=== PATIENT | female | born 1985 | race Two or more races ===

== ENCOUNTER 2016-05-12 08:19 | Inpatient (IN) | payer BC, OTHER ==
[2016-05-12 08:34] VITALS: BMI 48.2
[2016-05-12] MEDS ORDERED: ONDANSETRON 4 MG/2 ML VIAL ONE (08:57)
[2016-05-12] MEDS ORDERED: HYOSCYAMINE SULFATE 0.125 MG *ODT PO ONE (09:08)
[2016-05-12] MEDS ORDERED: SODIUM CHLORIDE 1,000 ML IV STA ×3 (09:08→12:50)
[2016-05-12] MEDS ORDERED: ONDANSETRON 4 MG/2 ML VIAL IVPUSH ONE (09:08)
--- NOTE | 2016-05-12 09:08 | PDOC ---
History of Present Illness - General Chief Complaint: Pain Stated Complaint: VOMITING, ABD PAIN, LIGHTHEADED Time Seen by Provider: 05/12/16 08:51 History Source: Patient Exam Limitations: No Limitations - History of Present Illness Initial Comments: 05/12/16 09:01 This is a 31 -year-old female with no significant past medical history presents emergency department with nausea, vomiting, diarrhea. Patient states she was in her usual state of health until this morning at 6 am She noted nausea and then vomited three times - non bloody, non bilious She also noted diarrhea, 4 episodes She reports mild epigstric discomfort She has had no fevers or chills No recent travel (+) ill contacts (pt works at [employer]), patients and staff are ill with the same symptoms No dietary changes GENERAL/CONSTITUTIONAL: No: fever, chills, weakness, loss of appetite. HEAD, EYES, EARS, NOSE AND THROAT: No: change in vision, ear pain, discharge, sore throat, throat swelling. CARDIOVASCULAR: No: chest pain, lightheadedness, palpitations, syncope RESPIRATORY: No: cough, shortness of breath, wheezing, hemoptysis, stridor. GASTROINTESTINAL: Yes: nausea, vomiting, diarrhea, abdominal pain No: rectal bleeding, constipation. GENITOURINARY: No: dysuria, hematuria, frequency, urgency, flank pain. MUSCULOSKELETAL: No: back pain, neck pain, joint pain, muscle swelling or pain SKIN : No: lesions, pallor, rash or easy bruising. NEUROLOGIC: No: headache, vertigo, paresthesias, weakness ENDOCRINE: No: unexplained weight gain or loss HEMATOLOGIC/LYMPHATIC: No: anemia, easy bleeding, swelling nodes. GENERAL: The patient is in no acute distress. HEAD: Normal with no signs of trauma. EYES: PERRLA, EOMI, sclera anicteric, conjunctiva clear. ENT: Ears normal, nares patent, oropharynx clear without exudates. Dry mucous membranes. NECK: Normal range of motion, supple without lymphadenopathy, JVD, or masses. LUNGS: Breath sounds equal, clear to auscultation bilaterally. No wheezes, and no crackles. HEART:Regular rate and rhythm, normal S1 and S2 without murmur, rub or gallop. ABDOMEN: Soft, epigastric tenderness to palpation, No involuntary guarding or rebound. EXTREMITIES: Normal range of motion, no edema. No clubbing or cyanosis. No erythema, or tenderness. NEUROLOGICAL: Cranial nerves II through XII grossly intact. Normal speech. No focal neurological deficits. MUSCULOSKELETAL: Back non-tender to palpation, no CVA tenderness SKIN: Warm, Dry, normal turgor, no rashes or lesions noted. 05/12/16 09:10 05/16/16 02:34 Past History - Past Medical History Allergies/Adverse Reactions: Allergies Allergy/AdvReac Type Severity Reaction Status Date / Time No Known Allergies Allergy Verified 05/12/16 08:31 Home Medications: Ambulatory Orders Ferrous Sulfate 325 mg PO DAILY 05/12/16 Other medical history: morbid obesity - Immunization History Immunization Up to Date: No - Psycho/Social/Smoking Cessation Hx Anxiety: No Suicidal Ideation: No Smoking History: Never smoked Have you smoked in the past 12 months: No Information on smoking cessation initiated: No Hx Alcohol Use: No Drug/Substance Use Hx: No Substance Use Type: None *Physical Exam - Vital Signs Last Vital Signs Temp Pulse Resp BP Pulse Ox 98.0 F 85 18 145/97 100 05/12/16 08:31 05/12/16 08:31 05/12/16 08:31 05/12/16 08:31 05/12/16 08:31 ED Treatment Course - LABORATORY CBC & Chemistry Diagram: 05/13/16 06:00 05/13/16 06:00 Medical Decision Making - Medical Decision Making 05/12/16 09:10 Will do basic labs Will do ZOfran Will give IVF 05/12/16 10:12 Laboratory Tests 05/12/16 05/12/16 09:10 09:10 WBC 6.3 Hgb 11.1 Hct 35.1 Plt Count 212 Neutrophils % 86.2 H Lymphocytes % 7.2 L Sodium 138 Potassium 4.4 Chloride 104 Carbon Dioxide 28 BUN 11 Creatinine 0.7 Random Glucose 88 Total Bilirubin 0.6 AST 237 H ALT 377 H Alkaline Phosphatase 184 H Total Amylase 76 Lipase 116 Given Zofran Given IVF Will do US RUQ 05/12/16 13:59 RUQ US demonstrates gall stones, anterior wall thickening, ? chronic cholecystitis Case reviewed with Dr. ailyn Will will trend LFTs Case reviewed with TAMRA sotomayor Will admit Clinical Impression: LFT abnormalities *DC/Admit/Observation/Transfer Diagnosis at time of Disposition: Transaminitis - Discharge Dispostion Disposition: HOME Condition at time of disposition: Improved Admit: Yes
[2016-05-12 09:26] LABS: BASOPHIL 0.3 % (0-2.0); EOSINOPHIL 0.4 % (0-4.5); MCH 27.1 pg (25.7-33.7); MCHC 31.7 g/dl (32.0-36.0); MEAN CELL VOLUME 85.4 fl (80-96); MEAN PLT VOLUME 9.3 fl (7.5-11.1); NEUTROPHILS 86.2 % (42.8-82.8); PLATELET COUNT 212 K/MM3 (134-434); RDW 16.4 % (11.6-15.6); WHITE BLOOD COUNT 6.3 K/mm3 (4.0-10.0)
[2016-05-12 09:48] LABS: ALBUMIN 3.5 g/dl (3.4-5.0); AMYLASE 76 U/L (25-115); ANION GAP 6 (8-16); CALCIUM 8.8 mg/dL (8.5-10.1); CO2 28 mmol/L (21-32); CREATININE 0.7 mg/dL (0.55-1.02); GLUCOSE,RANDOM 88 mg/dL (74-106); SGPT/ALT 377 U/L (12-78)
[2016-05-12 09:50] LABS: ALK PHOS 184 U/L (45-117); BILIRUBIN,TOTAL 0.6 mg/dL (0.2-1.0); TOT PROT 7.4 g/dl (6.4-8.2)
[2016-05-12 09:52] LABS: SGOT/AST 237 U/L (15-37)
[2016-05-12 13:45] LABS: URINE APPEARANCE CLEAR; URINE BILIRUBIN NEGATIVE (NEGATIVE); URINE BLOOD NEGATIVE (NEGATIVE); URINE COLOR LTYELLOW; URINE GLUCOSE (UA) NEGATIVE (NEGATIVE); URINE KETONE NEGATIVE (NEGATIVE); URINE LEUK ESTERASE NEGATIVE (NEGATIVE); URINE NITRITE NEGATIVE (NEGATIVE); URINE PROTEIN NEGATIVE (NEGATIVE); URINE UROBILINOGEN NEGATIVE E.U./dl (0.2-1.0)
[2016-05-12 15:16] LABS: ALBUMIN 3.5 g/dl (3.4-5.0); ALK PHOS 172 U/L (45-117); ANION GAP 6 (8-16); BILIRUBIN,TOTAL 0.5 mg/dL (0.2-1.0); CALCIUM 8.9 mg/dL (8.5-10.1); CO2 28 mmol/L (21-32); CREATININE 0.7 mg/dL (0.55-1.02); GLUCOSE,RANDOM 89 mg/dL (74-106); SGOT/AST 158 U/L (15-37); SGPT/ALT 339 U/L (12-78); TOT PROT 7.8 g/dl (6.4-8.2)
[2016-05-12] MEDS ORDERED: ONDANSETRON 4 MG/2 ML VIAL IVPB PRN (15:49)
[2016-05-12] MEDS ORDERED: DEXTROSE 5%-NORMAL SALINE 1,000 ML IV SCH (16:00)
--- NOTE | 2016-05-12 16:00 | HP ---
CHIEF COMPLAINT: vomiting and diarrhea since 6 am this morning. PCP: No PCP HISTORY OF PRESENT ILLNESS: 31 y/o morbidly obese female presents to ER for vomiting, diarrhea, and abdominal pain since 6 am this morning. She states the abdominal pain was in the epigastric region and was not aggravated by food. Her vomitus was nonbloody and nonbilious. Diarrhea was also non-bloody. She did not eat this morning nor did she eat dinner last night. She denies fevers and chills. Has sick contacts at work ([employer] [facility] [employer]) who have had N/V, diarrhea. She currently feels better and denies abdominal pain at the moment. She states before her she lost 25 pounds and did not gain weight during her . 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 She delivered 2 months ago via vaginal delivery. She is not breast feeding currently. She states she has never been aware of having gallstones in the past. ER course was notable for: (1) RUQ U/S (2) (3) Recent Travel: [place] June 2015; [place] December 2015 PAST MEDICAL HISTORY: denies PAST SURGICAL HISTORY: denies Social History: Smoking: Never Alcohol: Socially prior to Drugs: Never Family History: Twin sister: Passed; had scleroderma Allergies No Known Allergies Allergy (Verified 05/12/16 08:31) HOME MEDICATIONS: Medication Instructions Recorded NK [No Known Home Medication] 05/12/16 REVIEW OF SYSTEMS CONSTITUTIONAL: Weight loss Absent: fever, chills, diaphoresis, generalized weakness, malaise, loss of appetite, HEENT: Absent: rhinorrhea, nasal congestion, throat pain, throat swelling, difficulty swallowing, mouth swelling, ear pain, eye pain, visual changes CARDIOVASCULAR: Absent: chest pain, syncope, palpitations, irregular heart rate, lightheadedness , peripheral edema RESPIRATORY: Absent: cough, shortness of breath, dyspnea with exertion, orthopnea, wheezing, stridor, hemoptysis GASTROINTESTINAL: Nausea, vomiting, diarrhea, abd pain Absent: abdominal distension, constipation, melena, hematochezia GENITOURINARY: Absent: dysuria, frequency, urgency, hesitancy, hematuria, flank pain, genital pain MUSCULOSKELETAL: Absent: myalgia, arthralgia, joint swelling, back pain, neck pain SKIN: Absent: rash, itching, pallor HEMATOLOGIC/IMMUNOLOGIC: Absent: easy bleeding, easy bruising, lymphadenopathy, frequent infections ENDOCRINE: Absent: unexplained weight gain, unexplained weight loss, heat intolerance, cold intolerance NEUROLOGIC: Absent: headache, focal weakness or paresthesias, dizziness, unsteady gait, seizure, mental status changes, bladder or bowel incontinence PSYCHIATRIC: Absent: anxiety, depression, suicidal or homicidal ideation, hallucinations. PHYSICAL EXAMINATION GENERAL: Awake, alert, and fully oriented, in no acute distress. HEAD: Normal with no signs of trauma. EYES: extraocular movements intact, sclera anicteric, conjunctiva clear. EARS, NOSE, THROAT: Moist mucous membranes. NECK: Normal range of motion, supple LUNGS: Diminished breath sounds, clear to auscultation bilaterally. No wheezes, and no crackles. No accessory muscle use. HEART: Regular rate and rhythm, normal S1 and S2 without murmur, rub or gallop. ABDOMEN: Soft, MILD EPIGASTRIC TENDERNESS, not distended, normoactive bowel sounds, no guarding, no rebound, no masses. No hepatomegaly or splenomegaly. LOWER EXTREMITIES: 2+ pulses, warm, well-perfused. No peripheral edema. NEUROLOGICAL: Normal speech. Gait not observed PSYCHIATRIC: Cooperative. Good eye contact. Appropriate mood and affect. SKIN: Warm, dry, normal turgor, no rashes or lesions noted. Laboratory Results - last 24 hr 05/12/16 14:45 Sodium 138 Potassium 4.1 Chloride 104 Carbon Dioxide 28 Anion Gap 6 L BUN 10 Creatinine 0.7 Creat Clearance w eGFR > 60 Random Glucose 89 Calcium 8.9 Total Bilirubin 0.5 AST 158 H D ALT 339 H Alkaline Phosphatase 172 H Total Protein 7.8 Albumin 3.5 ASSESSMENT/PLAN: 31 y/o morbidly obese F presented with abd pain, vomiting, and diarrhea since 6 am this morning. Currently admitted for transaminitis and cholelithiasis. -Transaminitis -Trend LFTs -RUQ US shows hepatomegaly -f/u hepatitis panel -f/u iron studies -f/u SAHARA, Anti-smooth muscle Ab -Abdominal pain secondary to Cholecystitis most likely -secondary to chronic cholelithiasis most likely -f/u LFTs -RUQ US shows gallstones, some possible wall thickening -Dr. Will - surgery on board -May not need surgical intervention on this admission and may be able to do cholecystectomy as outpatient -No Abx currently as pt does not look acutely infected -Viral Gastroenteritis -May be cause of N/V and diarrhea -Has had sick contact with similar symptoms. -Nausea -Zofran 4 mg Q6H IV PRN for nausea -Morbid obesity -f/u TSH -FEN -D5NS@ 75 ml/hr -NPO currently -Dispo: -Monitor on floors for now, may be able to continue management as outpatient if she continues to improve. -Does not have PCP, will assign Dr. Valdes upon discharge. Problem List - Problem (1) Transaminitis Code(s): R74.0 - NONSPEC ELEV OF LEVELS OF TRANSAMNS & LACTIC ACID DEHYDRGNSE (2) Cholelithiasis Code(s): K80.20 - CALCULUS OF GALLBLADDER W/O CHOLECYSTITIS W/O OBSTRUCTION (3) Viral gastroenteritis Code(s): A08.4 - VIRAL INTESTINAL INFECTION, UNSPECIFIED (4) Hepatomegaly Code(s): R16.0 - HEPATOMEGALY, NOT ELSEWHERE CLASSIFIED (5) Morbid obesity Code(s): E66.01 - MORBID (SEVERE) OBESITY DUE TO EXCESS CALORIES Visit type - Emergency Visit Emergency Visit: Yes ED Registration Date: 05/12/16 Care time: The patient presented to the Emergency Department on the above date and was hospitalized for further evaluation of their emergent condition. - New Patient This patient is new to me today: Yes Date on this admission: 05/12/16 - Critical Care Critical Care patient: No
--- NOTE | 2016-05-12 16:24 | PN ---
Teaching Attending Note Name of Resident: Fléix Toussaint ATTENDING PHYSICIAN STATEMENT I saw and evaluated the patient. I reviewed the resident's note and discussed the case with the resident. I agree with the resident's findings and plan as documented. SUBJECTIVE:c/o nausea with vomiting and diarrhea since this morning. started shortly after breakfast with vomiting x4 food and bilious fluid and 2 episodes of loose BM. she denies any relation to food. upon arrival to ER started developing epigastric tenderness. 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 hx significant for spontaneous vaginal 2 months ago (not currently ) only complicated by frequent UTI. Hx also signficant for 25lb weight loss during the past 9 months. also travel to [place] at the beginning of her . denies any medication use (OTC, prescribed or herbal) denies ETOH and IVDA. NO tylenol use. family hx significant for twin sister with scleroderma OBJECTIVE: Last Vital Signs Temp Pulse Resp BP Pulse Ox 98.0 F 85 18 145/97 100 05/12/16 08:31 05/12/16 08:31 05/12/16 08:31 05/12/16 08:31 05/12/16 08:31 General NAD CV S1 S2 distant heart sounds Lungs CTA B/L no wheezing/rales/rhonchi Abdomen soft NT/ND no rebound or guarding no licea sign. morbid obese Extremities no pedal edema no rashes ASSESSMENT AND PLAN: 31yo F with PMH morbid obesity presented to the ER and was admitted for further evaluation of their emergent condition 1. Transaminitis- no baseline. could possibly be cholestasis of vs fatty liver vs chronic liver disease. will check TSH, iron studies, hepatitis panel. IVF. trend labs. will likely need further workup including liver biopsy as outpatient 2. Viral gastroenteritis- IVF, nausea and pain control 3. Chronic cholecystitis- no signs of acute infection. no pain, leukocytosis or fever. no indication for abx at this time. will likely require removal of gallbladder. can possibly be done as outpatient. surgery consulted 4. Morbid obesity- with weight loss over the past 9 months. this can be related to but may be significant and may require further workup. also encourage healthy eating habits and excercise. consider bariatric surgery. 5. DVT ppx- lovenox (moderate risk considering recent and obesity)
[2016-05-12] MEDS ORDERED: HYDROmorphone HCL CARPU-JECT 1 MG/1 ML DISP.SYRIN IM PRN (22:25)
--- NOTE | 2016-05-12 22:29 | HOSP ---
Subjective - Review of Symptoms General: No: Chills, Malaise, Appetite Gastrointestinal: Yes: Abdominal Pain, Diarrhea. No: Nausea, Vomiting, Hematochezia Physical Examination Vital Signs: Vital Signs Temperature 99 F 05/12/16 20:22 Pulse Rate 78 05/12/16 20:22 Respiratory Rate 18 05/12/16 20:22 Blood Pressure 126/67 05/12/16 20:22 O2 Sat by Pulse Oximetry (%) 100 05/12/16 20:22 Labs: CBC, BMP 05/12/16 14:45 Hospitalist Encounter Assessment: Was informed by the nurse that patient complained of abdominal pain. Went to see the patient, she was comfortably sleeping. Patient mentioned she had 5 episodes of bowel movements today, non bloody, watery diarrhoea, non fowl smelling. Abdominal pain has resolved at this time as per the patient. On examination: Abdomen: Soft, non tender, non distended, bowel sounds heard, hepatosplenomegaly couldn't be appreciated. Dilaudid 0.5mg IM PRN ordered. Case discussed with Dr. Otoole. Visit type - Emergency Visit Emergency Visit: Yes ED Registration Date: 05/12/16 Care time: The patient presented to the Emergency Department on the above date and was hospitalized for further evaluation of their emergent condition. - New Patient This patient is new to me today: Yes Date on this admission: 05/12/16 - Critical Care Critical Care patient: No
[2016-05-13 05:37] VITALS: TEMP 98.3
[2016-05-13 08:03] LABS: BASOPHIL 0.3 % (0-2.0); EOSINOPHIL 0.1 % (0-4.5); MCHC 31.8 g/dl (32.0-36.0); MEAN CELL VOLUME 85.1 fl (80-96); MEAN PLT VOLUME 9.6 fl (7.5-11.1); NEUTROPHILS 68.2 % (42.8-82.8); PLATELET COUNT 190 K/MM3 (134-434); RDW 16.3 % (11.6-15.6); WHITE BLOOD COUNT 3.8 K/mm3 (4.0-10.0)
[2016-05-13 10:46] VITALS: BP 112/70; PULSE 65
--- NOTE | 2016-05-13 11:53 | CONS ---
DATE OF CONSULTATION: 05/13/2016 ADMITTING DIAGNOSIS: Chronic cholecystitis, chronic cholelithiasis, rule out acute cholecystitis. BRIEF HISTORY: This is a 31-year-old morbidly obese female who presented to the emergency room with a several-hour history of nausea, vomiting, and severe abdominal pain. The pain started after eating food. Patient states that she has had previous bouts in the past and does have a mild fatty food intolerance. She underwent an ultrasound of the gallbladder. The gallbladder ultrasound demonstrated findings consistent with gallstones, mildly thickened gallbladder wall without pericholecystic fluid. These findings were consistent with chronic cholecystitis. At the time of admission, her transaminases and alkaline phosphatase were markedly elevated. Bilirubin was normal. Amylase was normal, as well. PAST MEDICAL HISTORY: No coronary artery disease, hypertension, or diabetes. PAST SURGICAL HISTORY: None. MEDICATIONS: Refer to chart. ALLERGIES: None. SOCIAL HISTORY: Patient is does not smoke, nor drink. PHYSICAL EXAMINATION: HEENT: There is no icterus. Abdomen: Is morbidly obese. It is soft, nontender, nondistended at this time. IMPRESSION/PLAN: Suspect biliary colic, rule out choledocholithiasis. This is a 31-year-old female with a known history of having gallstones and chronic cholecystitis. She presented with an acute problem yesterday through the emergency room. I suspect she was passing a stone. However, a common duct stone at this time cannot be entirely ruled out given the fact that her transaminases and alkaline phosphatase were markedly elevated. I would recommend repeating the LFTs at this point, and we should follow them. If the LFTs decrease, patient can be scheduled for an elective cholecystectomy during this admission or can be discharged. If the patients LFTs remain elevated, I would have GI evaluate her and rule out for a common duct stone. At this point, I would not feed the patient until her LFTs are starting to come down to ensure that she does not have the common duct stone. I will be available to see this patient on an as-needed basis. Thank you for allowing me to participate in the care of your patient. DOROTEO ERAZO M.D. [id number] cc: Ofe Khan MD [facility]
[2016-05-13 12:43] LABS: ANION GAP 8 (8-16); CO2 24 mmol/L (21-32); SGPT/ALT 212 U/L (12-78)
[2016-05-13 12:50] LABS: ALBUMIN 2.9 g/dl (3.4-5.0); BILIRUBIN,TOTAL 0.4 mg/dL (0.2-1.0); CALCIUM 8.7 mg/dL (8.5-10.1); CREATININE 0.7 mg/dL (0.55-1.02); GLUCOSE,RANDOM 85 mg/dL (74-106); SGOT/AST 68 U/L (15-37); TOT PROT 6.2 g/dl (6.4-8.2)
--- NOTE | 2016-05-13 13:39 | DS ---
Physical Exam: SUBJECTIVE: Patient seen and examined. states nausea and vomiting has resolved. last BM was last night and remained loose. ate breakfast and tolerated well. no abdominal pain. denies CP, SOB,fever, chills OBJECTIVE: Vital Signs Period Temp Pulse Resp BP Sys/Guy Pulse Ox Last 24 Hr 98.3 F-99.1 F 65-84 18-18 101-126/57-70 91-100 PHYSICAL EXAM GENERAL: The patient is awake, alert, and fully oriented, in no acute distress. HEAD: Normal with no signs of trauma. EYES: PERRL, extraocular movements intact, sclera anicteric, conjunctiva clear. ENT: Ears normal, nares patent, oropharynx clear without exudates, moist mucous membranes. NECK: Trachea midline, full range of motion, supple. LUNGS: Breath sounds equal, clear to auscultation bilaterally, no wheezes, no crackles, no accessory muscle use. HEART: Regular rate and rhythm, S1, S2 without murmur, rub or gallop. ABDOMEN: Soft, nontender, nondistended, normoactive bowel sounds, no guarding, no rebound, no hepatosplenomegaly, no masses. morbid obesity EXTREMITIES: 2+ pulses, warm, well-perfused, no edema. NEUROLOGICAL: Cranial nerves II through XII grossly intact. Normal speech, gait not observed. PSYCH: Normal mood, normal affect. SKIN: Warm, dry, normal turgor, no rashes or lesions noted. LABS Laboratory Results - last 24 hr 05/12/16 05/13/16 05/13/16 14:45 06:00 06:00 WBC 3.8 L D RBC 3.67 Hgb 9.9 L D Hct 31.3 L MCV 85.1 MCHC 31.8 L RDW 16.3 H Plt Count 190 MPV 9.6 Neutrophils % 68.2 D Lymphocytes % 22.4 D Monocytes % 9.0 Eosinophils % 0.1 Basophils % 0.3 Sodium 138 139 Potassium 4.1 3.6 Chloride 104 107 Carbon Dioxide 28 24 Anion Gap 6 L 8 BUN 10 9 Creatinine 0.7 0.7 Creat Clearance w eGFR > 60 > 60 Random Glucose 89 85 Calcium 8.9 8.7 Total Bilirubin 0.5 0.4 AST 158 H D 68 H D ALT 339 H 212 H D Alkaline Phosphatase 172 H Total Protein 7.8 6.2 L D Albumin 3.5 2.9 L HOSPITAL COURSE: Date of Admission:05/12/16 Date of Discharge: 05/13/16 Admitting diagnosis: Acute Transaminitis, Acute viral gastroenteritis pre hospital course 31 y/o morbidly obese female presents to ER for vomiting, diarrhea, and abdominal pain since 6 am this morning. She states the abdominal pain was in the epigastric region and was not aggravated by food. Her vomitus was nonbloody and nonbilious. Diarrhea was also non-bloody. She did not eat this morning nor did she eat dinner last night. She denies fevers and chills. Has sick contacts at work ([employer] living [employer]) who have had N/V, diarrhea. She currently feels better and denies abdominal pain at the moment. She states before her she lost 25 pounds and did not gain weight during her . 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 She delivered 2 months ago via vaginal delivery. She is not breast feeding currently. She states she has never been aware of having gallstones in the past Subsequent hospital course Admitted to medicine. started on IVF, NPO, pain and nausea control. TSH, iron studies and hepatitis panel was sent. U/s of gallbladder showed chronic cholecystitis with multiple stones. surgery consulted. transaminitis trended down. symptoms resolved. diet advanced and tolerated. pt agreed to f/u with surgery next week for cholecystectomy. informed to avoid fried, fatty foods. d/ c home Minutes to complete discharge: 40 Discharge Summary Reason For Visit: TRANSAMINITIS Current Active Problems Cholelithiasis (Acute) Hepatomegaly (Acute) Morbid obesity (Acute) Transaminitis (Acute) Viral gastroenteritis (Acute) Condition: Improved - Instructions Diet, Activity, Other Instructions: You had several gallstones and will need to have your gallbladder removed, contact information for the surgeon you saw today have been provided. Call for appointment this sunday You need to see a primary care doctor, call for appointment next week. You will need to follow your liver enzymes and other test that were sent on this admission. Eat a low fat diet, avoid fried and fatty foods. Return to the ER if you develop Right sided abdominal pain or fever (temp >101) . Referrals: Parminder Will MD [Staff Physician] - bAel Balderas MD [Staff Physician] - Disposition: HOME - Home Medications Comprehensive Discharge Medication List: Ambulatory Orders Ferrous Sulfate 325 mg PO DAILY 05/12/16 This patient is new to me today: No Emergency Visit: Yes ED Registration Date: 05/12/16 Care time: The patient presented to the Emergency Department on the above date and was hospitalized for further evaluation of their emergent condition. Critical Care patient: No - Discharge Referral Referred to [facility] Yes Physician Referral: Abel Balderas MD (Int Med) (resident: Félix Toussaint)
[2016-05-13 18:09] LABS: ALK PHOS 131 U/L (45-117); FERRITIN 72.079 ng/ml (6.9-282.5); THYROID STIMULATING HORMONE 0.41 uIU/ml (0.358-3.74)
[2016-05-14 06:37] LABS: SERUM IRON 43 ug/dL (27-159); TOTAL IRON BINDING CAPACITY 269 ug/dL (250-450); UIBC 226 ug/dL (131-425)
[2016-05-16 00:07] LABS: SMOOTH MUSCLE AB 11 Units (0-19)
[2016-05-17 00:06] LABS: HEP B SURFACE AB Non Reactive (.)
== END 2016-05-13 14:21 | disposition home or self-care (01) ==
LOC: JER 08:19 → JERBED 14:31 → J7W 18:20
PROVIDERS: ADMIT Internal Medicine; ATTEND Internal Medicine
DX: K80.10 Calculus of gallbladder with chronic cholecystitis without obstruction (principal); A08.4 Viral intestinal infection, unspecified; R16.0 Hepatomegaly, not elsewhere classified; R74.0 Nonspecific elevation of levels of transaminase and lactic acid dehydrogenase [LDH]; E66.01 Morbid (severe) obesity due to excess calories; Z68.42 Body mass index [BMI] 45.0-49.9, adult; Z71.3 Dietary counseling and surveillance
CPT/HCPCS: 36415; 76705-TC; 80053; 81003; 82150; 82728; 83516; 83540; 83550; 83690; 84443; 85025; 86038; 86704; 86706; 86708; 86803; 87086; 87340; 99283-25

== ENCOUNTER 2017-01-06 09:14 | Emergency (ER) | payer OTHER ==
[2017-01-06 09:19] VITALS: BMI 48.6
--- NOTE | 2017-01-06 09:24 | PDOC ---
History of Present Illness - General History Source: Patient Exam Limitations: No Limitations - History of Present Illness Initial Comments: 01/06/17 09:44 The patient is a 31 year old female, with significant past medical history of gallstones, who presents to the emergency room complaining of RUQ pain starting at 6:00am this morning. The patient states that these symptoms are similar to when she had gallstones in April of this year. She was admitted here and was told to have a cholecystectomy, however, the referred doctor did not take her insurance. Since April, 8 months ago, she has experienced intermittent RUQ pain. However, today the pain is constant, sharp, and 8/10 in severity. Her last meal was ribs and fried plantains at dinner last night. Denies fever, chills, nausea, vomiting. Denies diarrhea. Denies recent travel and recent illness. <Louise Mart - Last Filed: 01/06/17 10:41> - General History Source: Patient Exam Limitations: No Limitations <Marge Granados - Last Filed: 01/06/17 11:03> - General Chief Complaint: Pain Stated Complaint: PAIN/ GALLSTONES Time Seen by Provider: 01/06/17 09:23 Past History <Louise Mart - Last Filed: 01/06/17 10:41> - Past Medical History Anemia: Yes - Immunization History Immunization Up to Date: No - Psycho/Social/Smoking Cessation Hx Anxiety: No Suicidal Ideation: No Smoking History: Never smoked Have you smoked in the past 12 months: No Hx Alcohol Use: No Drug/Substance Use Hx: No Substance Use Type: None Hx Substance Use Treatment: No <Marge Granados - Last Filed: 01/06/17 11:03> - Past Medical History Allergies/Adverse Reactions: Allergies Allergy/AdvReac Type Severity Reaction Status Date / Time No Known Allergies Allergy Verified 01/06/17 09:19 Home Medications: Ambulatory Orders Ferrous Sulfate 325 mg PO DAILY 05/12/16 Review of Systems - Review of Systems Able to Perform ROS?: Yes Comments:: 01/06/17 09:45 GENERAL/CONSTITUTIONAL: No: fever, chills, weakness, loss of appetite. HEAD, EYES, EARS, NOSE AND THROAT: No: change in vision, ear pain, discharge, sore throat, throat swelling. CARDIOVASCULAR: No: chest pain, lightheadedness, palpitations, syncope RESPIRATORY: No: cough, shortness of breath, wheezing, hemoptysis, stridor. GASTROINTESTINAL: +RUQ pain. No: nausea, vomiting, diarrhea, rectal bleeding, constipation. GENITOURINARY: No: dysuria, hematuria, frequency, urgency, flank pain. MUSCULOSKELETAL: No: back pain, neck pain, joint pain, muscle swelling or pain SKIN: No: lesions, pallor, rash or easy bruising. NEUROLOGIC: No: headache, vertigo, paresthesias, weakness ENDOCRINE: No: unexplained weight gain or loss HEMATOLOGIC/LYMPHATIC: No: anemia, easy bleeding, swelling nodes <Louise Mart - Last Filed: 01/06/17 10:41> *Physical Exam - Vital Signs Last Vital Signs Temp Pulse Resp BP Pulse Ox 98.0 F 82 20 144/96 99 01/06/17 09:16 01/06/17 09:16 01/06/17 09:16 01/06/17 09:16 01/06/17 09:16 - Physical Exam Comments: 01/06/17 09:45 GENERAL: The patient is in no acute distress. HEAD: Normal with no signs of trauma. EYES: PERRLA, EOMI, sclera anicteric, conjunctiva clear. ENT: Ears normal, nares patent, oropharynx clear without exudates. Moist mucous membranes. NECK: Normal range of motion, supple without lymphadenopathy, JVD, or masses. LUNGS: Breath sounds equal, clear to auscultation bilaterally. No wheezes, and no crackles. HEART:Regular rate and rhythm, normal S1 and S2 without murmur, rub or gallop. ABDOMEN: +RUQ tenderness. No voluntary guarding, no rebound. +[place] sign. EXTREMITIES: Normal range of motion, no edema. No clubbing or cyanosis. No erythema, or tenderness. NEUROLOGICAL: Cranial nerves II through XII grossly intact. Normal speech. No focal neurological deficits. MUSCULOSKELETAL: Back nontender to palpation, no CVA tenderness SKIN: Warm, Dry, normal turgor, no rashes or lesions noted. <Louise Mart - Last Filed: 01/06/17 10:41> - Vital Signs Last Vital Signs Temp Pulse Resp BP Pulse Ox 98.0 F 82 20 144/96 99 01/06/17 09:16 01/06/17 09:16 01/06/17 09:16 01/06/17 09:16 01/06/17 09:16 <Marge Granados - Last Filed: 01/06/17 11:03> ED Treatment Course - LABORATORY CBC & Chemistry Diagram: 01/06/17 09:53 01/06/17 09:53 - RADIOLOGY Radiograph Interpretation: 01/06/17 10:41 EXAM#: TYPE/EXAM: RESULT: [id number] US/ABDOMEN US -LIMITED Abdominal ultrasound Limited to right upper quadrant HISTORY: Rule out cholecystitis FINDINGS: The liver is enlarged measuring 21.4 cm with increased echogenicity Multiple small gallstones seen within the gallbladder. No abnormal gallbladder wall thickening. No abnormal bile duct dilatation. The visualized portions of the pancreas aorta and IVC grossly unremarkable. The right kidney measures 11.4 cm and is unremarkable. IMPRESSION: Fatty enlarged liver. Cholelithiasis. No sonographic evidence of acute cholecystitis. Clinical correlation suggested Reported By: Balaji Bowman MD 01/06/17 1037 <Louise Mart - Last Filed: 01/06/17 10:41> - LABORATORY CBC & Chemistry Diagram: 01/06/17 09:53 01/06/17 09:53 <Marge Granados - Last Filed: 01/06/17 11:03> Medical Decision Making - Medical Decision Making 01/06/17 09:24 A portion of this note was documented by scribe services under my direction. I have reviewed the details of the note, within reason, and agree with the documentation with the following case summary and management plan written by me. Nursing documentation reviewed and incorporated into medical decision making 01/06/17 09:34 This is a 31 yo F with a history of cholelithiasis who presents to the ER with a complaint of RUQ pain She was previously admitted to this facility due to transaminitis, found to have cholelithiasis. Once her labs returned to normal, patient was discharged home and asked to follow-up with the surgeon as an outpatient for elective cholecystectomy. Patient states she attempted to follow up but he surgeon did not take her insurance, and therefore she never saw the surgeon as an outpatient. Patient states she intermittently has right upper quadrant pain but is typically not severe. This morning at approximately 6 AM she developed severe right upper quadrant pain. Not associated with nausea, vomiting, diarrhea. Not associated with fever. Last meal was last night at 9:10 PM- fried plaintains and ribs. ON examination: Patient is well-appearing, morbidly obese Right upper quadrant tenderness to palpation No involuntary guarding or rebound Positive [place] sign Differential diagnosis: Cholelithiasis, Cholecystitis, pancreatitis Will do labs, US Contact Dr Ruiz 01/06/17 10:32 Laboratory Tests 05/13/16 01/06/17 01/06/17 06:00 09:53 09:53 WBC 3.8 L D 7.7 D Hgb 9.9 L D 10.4 L Hct 31.3 L 32.2 L Plt Count 190 276 D Total Bilirubin 0.6 D AST 33 D ALT 31 D Alkaline Phosphatase 100 D Total Amylase 110 D Lipase 218 Urine Nitrite Ur Leukocyte Esterase Urine RBC Urine WBC Ur Epithelial Cells 01/06/17 09:53 WBC Hgb Hct Plt Count Total Bilirubin AST ALT Alkaline Phosphatase Total Amylase Lipase Urine Nitrite Negative Ur Leukocyte Esterase 3+ H Urine RBC 2 Urine WBC 4 Ur Epithelial Cells Rare 01/06/17 11:00 US demonstrates cholelithiasis Pt feels better will discharge to home Pt encouraged to follow up with General surgery <Marge Granados - Last Filed: 01/06/17 11:03> *DC/Admit/Observation/Transfer - Attestations Scribe Attestion: 01/06/17 09:45 Documentation prepared by YEFRI Grullon, acting as medical record clerk for Marge Granados MD. <Louise Mart - Last Filed: 01/06/17 10:41> - Discharge Dispostion Admit: No <Marge Granados - Last Filed: 01/06/17 11:03> Diagnosis at time of Disposition: Cholelithiasis Qualifiers: Cholelithiasis location: gallbladder Cholecystitis presence: without cholecystitis Biliary obstruction: without biliary obstruction Qualified Code(s) : K80.20 - Calculus of gallbladder without cholecystitis without obstruction - Discharge Dispostion Disposition: HOME Condition at time of disposition: Stable - Referrals Referrals: Keshawn Ruiz MD [Staff Physician] - Mil Pedroza MD [Staff Physician] - - Patient Instructions Printed Discharge Instructions: DI for Gallstones Additional Instructions: [place] Thank you for coming into the emergency Department today. Please review her labs and ultrasound studies. You have gallstones. You need to follow up with a general surgeon. I have placed the information of to general surgeons in your discharge instructions Please return immediately to the emergency department for severe pain, fever, nausea, vomiting. Please try to avoid fatty foods. - Post Discharge Activity Work/School Note: Back to Work
[2017-01-06] MEDS ORDERED: morphine CARPU-JECT 4 MG/1 ML DISP.SYRIN IVPUSH ONE (09:30)
[2017-01-06] MEDS ORDERED: SODIUM CHLORIDE 1,000 ML IV STA (09:30)
[2017-01-06] MEDS ORDERED: morphine CARPU-JECT 4 MG/1 ML DISP.SYRIN ONE (09:37)
[2017-01-06 10:10] LABS: URINE APPEARANCE CLEAR; URINE BILIRUBIN NEGATIVE (NEGATIVE); URINE BLOOD NEGATIVE (NEGATIVE); URINE COLOR YELLOW; URINE GLUCOSE (UA) NEGATIVE (NEGATIVE); URINE KETONE NEGATIVE (NEGATIVE); URINE NITRITE NEGATIVE (NEGATIVE); URINE PROTEIN NEGATIVE (NEGATIVE); URINE UROBILINOGEN NEGATIVE mg/dL (0.2-1.0)
[2017-01-06 10:15] LABS: URINE LEUK ESTERASE 3+ (NEGATIVE)
[2017-01-06 10:17] LABS: BASOPHIL 0.3 % (0-2.0); EOSINOPHIL 0.5 % (0-4.5); MCHC 32.3 g/dl (32.0-36.0); MEAN CELL VOLUME 86.6 fl (80-96); MEAN PLT VOLUME 9.6 fl (7.5-11.1); NEUTROPHILS 67.4 % (42.8-82.8); PLATELET COUNT 276 K/MM3 (134-434); RDW 14.1 % (11.6-15.6); WHITE BLOOD COUNT 7.7 K/mm3 (4.0-10.0)
[2017-01-06 10:25] LABS: ALBUMIN 3.5 g/dl (3.4-5.0); AMYLASE 110 U/L (25-115); ANION GAP 8 (8-16); BILIRUBIN,TOTAL 0.6 mg/dL (0.2-1.0); CALCIUM 8.9 mg/dL (8.5-10.1); CO2 28 mmol/L (21-32); CREATININE 0.6 mg/dL (0.55-1.02); GLUCOSE,RANDOM 76 mg/dL (74-106); SGOT/AST 33 U/L (15-37); SGPT/ALT 31 U/L (12-78); TOT PROT 7.7 g/dl (6.4-8.2)
[2017-01-06 10:26] LABS: ALK PHOS 100 U/L (45-117); URINE MUCUS RARE; URINE RBC 2 /hpf (0-3); URINE WBC 4 /hpf (3-5)
[2017-01-06 11:20] VITALS: BP 126/66; PULSE 62; TEMP 98.2
== END 2017-01-06 11:20 | disposition home or self-care (01) ==
LOC: JER 09:14
PROC: 3E033NZ Introduction of Analgesics, Hypnotics, Sedatives into Peripheral Vein, Percutaneous Approach (ICD-10-PCS; principal; 2017-01-06)
DX: K80.20 Calculus of gallbladder without cholecystitis without obstruction (principal)
CPT/HCPCS: 36415; 76705-TC; 80053; 81003; 81015; 82150; 83690; 84703; 85025; 87086; 96374; 99283-25

== ENCOUNTER 2019-04-02 11:11 | Emergency (ER) | payer SELFPAY ==
[2019-04-02 11:21] VITALS: BP 126/53; PULSE 92; TEMP 99.2; BMI 43.3
[2019-04-02] MEDS ORDERED: ACETAMINOPHEN 500 MG TABLET (FP) PO ONE (11:35)
[2019-04-02] MEDS ORDERED: ACETAMINOPHEN 500 MG TABLET (FP) ONE (11:37)
--- NOTE | 2019-04-02 12:08 | PDOC ---
History of Present Illness - General Chief Complaint: Cold Symptoms Stated Complaint: LIGHTHEADED/ COUGH Time Seen by Provider: 04/02/19 11:33 - History of Present Illness Initial Comments: 04/02/19 12:07 33-year-old female with upper respiratory symptoms and low-grade fever x1 day 04/02/19 12:07 No comorbidities or home medications Past History - Past Medical History Allergies/Adverse Reactions: Allergies Allergy/AdvReac Type Severity Reaction Status Date / Time No Known Allergies Allergy Verified 04/02/19 11:21 Home Medications: Ambulatory Orders Ferrous Sulfate 325 mg PO DAILY 05/12/16 Anemia: Yes COPD: No - Immunization History Immunization Up to Date: No - Psycho Social/Smoking Cessation Hx Smoking History: Never smoked Have you smoked in the past 12 months: No Information on smoking cessation initiated: No Hx Alcohol Use: No Drug/Substance Use Hx: No Substance Use Type: None Hx Substance Use Treatment: No Review of Systems - Review of Systems Constitutional: Yes: Fever HEENTM: Yes: Nose Congestion *Physical Exam - Vital Signs Last Vital Signs Temp Pulse Resp BP Pulse Ox 99.2 F 92 H 19 126/53 L 98 04/02/19 11:19 12 11:19 04/02/19 11:19 04/02/19 11:19 04/02/19 11:19 - Physical Exam 04/02/19 12:07 GENERAL: The patient is awake, alert, and fully oriented, in no acute distress. HEAD: Normal with no signs of trauma. EYES: sclera anicteric, conjunctiva clear. ENT: Ears normal NECK: Normal range of motion LUNGS: Breath sounds equal, clear to auscultation bilaterally. No wheezes, and no crackles. HEART: S1 and S2 without murmur, rub or gallop. ABDOMEN: Soft, nontender, normoactive bowel sounds. No guarding, no rebound. No masses. EXTREMITIES: Normal range of motion, no edema. No clubbing or cyanosis. No cords, erythema, or tenderness. NEUROLOGICAL: Cranial nerves II through XII grossly intact. Normal speech, normal gait. PSYCH: Normal mood, normal affect. SKIN: Warm, Dry, normal turgor, no rashes or lesions noted. ED Treatment Course - Medications Given in the ED: ED Medications Discontinued Medications Generic Name Dose Route Start Last Admin Trade Name Freq PRN Reason Stop Dose Admin Acetaminophen 1,000 mg 04/02/19 11:35 04/02/19 11:51 Tylenol - PO 04/02/19 11:36 1,000 mg ONCE ONE Administration Medical Decision Making - Medical Decision Making 04/02/19 12:07 Supportive care for viral upper respiratory infection influenza negative Discharge - Discharge Information Problems reviewed: Yes Clinical Impression/Diagnosis: Morbid obesity, Viral URI Condition: Stable Disposition: HOME - Admission No - Follow up/Referral Referrals: Ortega Reyes [Primary Care Provider] - - Patient Discharge Instructions Patient Printed Discharge Instructions: DI for Viral Upper Respiratory Infection -- Adult Additional Instructions: Tylenol and Motrin for fever. Follow-up with your primary care physician without fail in 2 to 3 days for further evaluation and treatment options. Return to the emergency room for worsening symptoms. Your influenza swab today was negative. - Post Discharge Activity
== END 2019-04-02 12:11 | disposition home or self-care (01) ==
LOC: JERFT 11:11
DX: J06.9 Acute upper respiratory infection, unspecified (principal); E66.01 Morbid (severe) obesity due to excess calories; Z68.41 Body mass index [BMI] 40.0-44.9, adult; D64.9 Anemia, unspecified
CPT/HCPCS: 87804; 99281-25

== ENCOUNTER 2019-04-03 10:26 | Emergency (ER) | payer SELFPAY ==
[2019-04-03 10:43] VITALS: BP 119/82; PULSE 91; TEMP 99.2; BMI 53.1
[2019-04-03] MEDS ORDERED: SODIUM CHLORIDE FOR INHALATION 3 ML VIAL.NEB IH ONE (11:05)
--- NOTE | 2019-04-03 11:38 | PDOC ---
History of Present Illness - General Chief Complaint: Cold Symptoms Stated Complaint: LIGHTHEADED/ COUGH Time Seen by Provider: 04/03/19 10:54 History Source: Patient Exam Limitations: No Limitations Past History - Past Medical History Allergies/Adverse Reactions: Allergies Allergy/AdvReac Type Severity Reaction Status Date / Time No Known Allergies Allergy Verified 04/02/19 11:21 Home Medications: Ambulatory Orders Ferrous Sulfate 325 mg PO DAILY 05/12/16 Nebulizer Accessories [Aeroneb Go] 1 each MC DAILY #1 each 04/03/19 Nebulizer [Aeroneb Go Nebulizer] 1 each MC DAILY #1 each 04/03/19 Sodium Chloride Inhalation [Normal Saline For Inhalation -] 3 ml IH Q6H #15 [email or web address] 04/03/19 Anemia: Yes COPD: No - Immunization History Immunization Up to Date: No - Psycho Social/Smoking Cessation Hx Smoking History: Never smoked Have you smoked in the past 12 months: No Hx Alcohol Use: No Drug/Substance Use Hx: No Substance Use Type: None Hx Substance Use Treatment: No *Physical Exam - Vital Signs Last Vital Signs Temp Pulse Resp BP Pulse Ox 99.2 F 91 H 20 119/82 99 04/03/19 10:37 04/03/19 10:37 04/03/19 10:37 04/03/19 10:37 04/03/19 10:37 - Physical Exam General Appearance: No: Apparent Distress HEENT: negative: Nasal Congestion, Rhinorrhea Respiratory/Chest: positive: Lungs Clear, Normal Breath Sounds. negative: Respiratory Distress, Accessory Muscle Use, Labored Respiration, Rapid RR Integumentary: positive: Normal Color Neurologic: positive: Alert ED Treatment Course - RADIOLOGY Radiology Studies Ordered: Category Date Time Status CHEST PA & LAT [RAD] Stat Radiology 04/03/19 11:26 Ordered - Medications Given in the ED: ED Medications Discontinued Medications Generic Name Dose Route Start Last Admin Trade Name Freq PRN Reason Stop Dose Admin Sodium Chloride 3 ml 04/03/19 11:05 04/03/19 11:10 Normal Saline For Inhalation - IH 04/03/19 11:06 3 ml ONCE ONE Administration Medical Decision Making - Medical Decision Making 33 y/o F with no sig pmh presents with dry cough x 3 days. Was seen in ED yesterday and tested negative for flu. Returns today as states cough is worse along with feeling some SOB and wheezing today. Denies fever, chest pain, abd pain, n/v. Denies smoking history. No wheezing noted on exam Will trial saline neb and reassess Also sent for CXR 04/03/19 11:33 Patient feeling much better after saline neb CXR shows incidental partial compression of lower thoracic vertebral body Patient denies numbness/tingling/weakness of extremitites; also denies recent trauma Advised f/u with PCP re: findings stable for dc 04/03/19 12:03 Discharge - Discharge Information Problems reviewed: Yes Clinical Impression/Diagnosis: Viral URI Condition: Improved Disposition: HOME - Admission No - Additional Discharge Information Prescriptions: Nebulizer [Aeroneb Go Nebulizer] 1 each MC DAILY #1 each Nebulizer Accessories [Aeroneb Go] 1 each MC DAILY #1 each Sodium Chloride Inhalation [Normal Saline For Inhalation -] 3 ml IH Q6H #15 [email or web address] Prescription Drug Monitoring Program (I-STOP) results: I-STOP not reviewed - Follow up/Referral Referrals: Ortega Reyes [Primary Care Provider] - 2 Days - Patient Discharge Instructions Patient Printed Discharge Instructions: DI for Viral Upper Respiratory Infection -- Adult Additional Instructions: Thank you for choosing [facility]. It was a pleasure taking care of you. Use saline neb as needed for your symptoms You were also incidentally noted with partial compression of your lower thoracic vertebral body. Please follow-up with your doctor regarding these findings. Return to the Emergency Department if your symptoms worsen or persist, you have fever, weakness of extremities (arms and/or legs) or other concerning symptoms. - Post Discharge Activity
== END 2019-04-03 12:15 | disposition home or self-care (01) ==
LOC: JERFT 10:26
PROC: 3E0F7GC Introduction of Other Therapeutic Substance into Respiratory Tract, Via Natural or Artificial Opening (ICD-10-PCS; principal; 2019-04-03)
DX: J06.9 Acute upper respiratory infection, unspecified (principal); D64.9 Anemia, unspecified
CPT/HCPCS: 71046-TC-FY; 99281-25